=== PATIENT | female | born 2000 | race Caucasian/White ===

== ENCOUNTER 2020-07-10 13:39 | Emergency (ER) | payer SELFPAY ==
[2020-07-10 14:45] VITALS: BP 146/87; PULSE 104; RESP 20; TEMP 36.6; O2SAT 96; BMI 50.9
--- NOTE | 2020-07-10 14:45 | XR_ITS ---
PROCEDURE: XR FOOT LT MIN 3V CLINICAL INDICATION: FELT POP IN FOOT WHILE WALKING Pain COMPARISON: No exams were available for comparison FINDINGS: No fracture or dislocation. No lytic or blastic change. There is normal mineralization. The joint spaces are well-preserved. No significant degenerative/arthritic changes. No erosive changes evident. Other findings:None. IMPRESSION: No acute findings. Dictated by: Jose Miguel Carranza MD 07/10/2020 15:05 Jose Miguel Carranza MD in [place] 07/10/2020 15:05
--- NOTE | 2020-07-10 15:24 | HMH.EDUTC ---
[facility] [place] Disposition Clinical Impression: Left foot pain, Tendonitis of foot, Flank pain, acute Disposition: Home, Self-Care Condition on Discharge: Good Instructions: Tendinopathy, DI for Foot Pain Additional Instructions: Rest the extremity, apply ice for 15 minutes as tolerated three or four times per day, Wear the evaristo wrap for compression, Elevate the extremity as tolerated while you are resting. Take ibuprofen for pain. I sent in a prescription to your pharmacy. Follow up with Dr. Kern (measurement specialist). I put in a referral but you need to call her office and schedule an appointment. Follow up with your regular doctor. GO TO THE ER FOR ANY WORSENING SYMPTOMS Prescriptions: Ibuprofen [Ibuprofen 600mg Tablet] 600 mg PO Q6HP PRN #30 tab PRN Reason: Mild Pain Transmission Status: Received by [id number] Referrals: Joaquín Shen [Primary Care Provider] - Forms: Work/School Release Time of Disposition: 15:27 Medical Decision Making - Medical Records Medical records reviewed: No: I reviewed the patient's medical records. - Jose Armando Inquiry Pt receiving controlled substance: No Vital Signs: 07/10/20 14:45 07/10/20 15:30 Temperature 97.8 F 97.8 F Temperature Source Oral Pulse Rate 104 H Pulse Rate [Right Brachial] 104 H Respiratory Rate 20 20 Blood Pressure 146/87 H Blood Pressure [Right Arm] 146/87 H Blood Pressure Mean [Right Arm] 106 Blood Pressure Source [Right Arm] Automatic Cuff Blood Pressure Position [Right Arm] Sitting 02 Sat by Pulse Oximetry 96 Oxygen Delivery Method Room Air - Radiology Data #1 Image(s): Foot/Toes Image Reviewed: Yes I reviewed the patient's radiology image, Yes I have reviewed radiologist's interpretation Preliminary Findings: No Fracture Seen PROCEDURE: XR FOOT LT MIN 3V CLINICAL INDICATION: FELT POP IN FOOT WHILE WALKING Pain COMPARISON: No exams were available for comparison FINDINGS: No fracture or dislocation. No lytic or blastic change. There is normal mineralization. The joint spaces are well-preserved. No significant degenerative/arthritic changes. No erosive changes evident. Other findings:None. IMPRESSION: No acute findings. Dictated by: Jose Miguel Carranza MD 07/10/2020 15:05 Jose Miguel Carranza MD in [place] 07/10/2020 15:05 [facility] [place] HPI - General Stated complaint: ao @ 1118 L foot popped Time Seen by Provider: 07/10/20 15:24 Mode of Arrival: Ambulatory Source of Information: Patient Limitations: No Limitations Description of Symptoms (Recalled from Triage Doc. by RN): PATIENT C/O PAIN TO SIDE OF LEFT FOOT X 3 DAYS HEENT Symptoms (Recalled from RN notes): No Resp Symptoms (Recalled from RN notes): No Skin Symptoms (Recalled from RN notes): No MS Symptoms (Recalled from RN notes): Yes Functional Status (Recalled from RN notes): WNL - History of Present Illness Provider Complaint: She states that 3 days ago she was walking when she heard and felt something pop in her left foot. Since then she has had pain with walking and bearing weight on the foot. - Related Data Previous Rx's Medication Instructions Recorded Ibuprofen [Ibuprofen 600mg 600 mg PO Q6HP PRN #30 tab 07/10/20 Tablet] Allergies Allergy/AdvReac Type Severity Reaction Status Date / Time No Known Allergies Allergy Verified 04/15/19 20:56 - Worker's Comp Is this a Worker's Comp case?: No [facility] History - Hepatitis A Screen Drug use history?: No High risk sexual behaviors?: No History of sexually transmitted infection?: No Currently employed?: No Childcare worker?: No Do you have indoor plumbing?: Yes Do you have electricity?: Yes Attestation statement:: This patient has been screened for Hepatitis A risk factors. I have reviewed the patient's past medical history: Yes - Social History Alcohol Intake: never Occupational Status: other Housing: house ROS Obtained: Yes All systems reviewed & no additional complaints -
[2020-07-10 15:30] VITALS: BP 146/87; PULSE 104; RESP 20; TEMP 36.6; O2SAT 96
== END 2020-07-10 15:35 | disposition home or self-care (01) ==
PROVIDERS: Emergency Provider Nurse Practitioner Family; PCP Pediatrics
DX: M77.52 Other enthesopathy of left foot and ankle (principal); R10.9 Unspecified abdominal pain
CPT/HCPCS: 73630; 99201

== ENCOUNTER 2020-09-25 15:27 | Emergency (ER) | payer BC, SELFPAY ==
[2020-09-25 15:52] VITALS: BP 151/91; PULSE 109; RESP 14; TEMP 37.1; O2SAT 100; BMI 50.2
--- NOTE | 2020-09-25 15:55 | HMH.EDUTC ---
[facility] [place] Disposition Clinical Impression: Strep throat Disposition: Home, Self-Care Condition on Discharge: Good Instructions: DI for Strep Throat, Strep Throat, Strep Throat (Alternative Therapy) Additional Instructions: *Monitor Temp, Over the counter Motrin or Tylenol as directed/as needed Tylenol every 4 hours and Motrin every 6 hours (as long as your family doctor has told you that you can take it) for fever or pain. and straight to ER if unable to lower temp less than 101.0 after medication given *Warm salt water gargles may help to soothe the throat *Throat Lozenges *Warm fluids like tea with honey may help to soothe the throat *Sleep elevated *Humidifier/Vaporizer Strep throat *If you did not take Penicillin shot or was unable to, start taking antibiotic immediately and make sure that you take it for the FULL length of time although you should start to feel better in 24-48 hours *change toothbrush and toothpaste 24-48 hours after starting to take antibiotics so you do not reinfect yourself Monitor Temp. Tylenol and/or Ibuprofen as needed. ER if fever is no less than 101 despite alternating Tylenol and Ibuprofen * Encourage fluids, water, Gatorade, powerade, pedialyte if /toddler/or child *Cold fluids, popsicles and ice cream may feel good on his throat Follow up IMMEDIATELY for new or worsening symptoms or no Noticeable improvement over the next 48-72 hours. 911 for difficulty breathing or swallowing Prescriptions: Amoxicillin [Amoxicillin 500mg Cap] 500 mg PO BID 10 Days #20 cap Transmission Status: [id number] methylPREDNISolone [Medrol 4mg tab] 4 mg PO DIRECTED #21 tab Transmission Status: [id number] Referrals: Joaquín Shen [Primary Care Provider] - As needed Time of Disposition: 16:03 Medical Decision Making - Jose Armando Inquiry Pt receiving controlled substance: No Jose Armando was queried for this patient: No Vital Signs: 09/25/20 15:52 Temperature 98.7 F Temperature Source Oral Pulse Rate [Right] 109 H Respiratory Rate 14 Blood Pressure [Right Arm] 151/91 H Blood Pressure Mean [Right Arm] 111 Blood Pressure Source [Right Arm] Automatic Cuff Blood Pressure Position [Right Arm] Sitting 02 Sat by Pulse Oximetry 100 Oxygen Delivery Method Room Air - Lab Data Lab results reviewed: Yes: I reviewed the patient's lab results. [facility] [place] HPI - General Stated complaint: sore throat Time Seen by Provider: 09/25/20 15:55 Mode of Arrival: Ambulatory Source of Information: Patient Limitations: No Limitations Description of Symptoms (Recalled from Triage Doc. by RN): pt woke up with a sore throat and body aches. she says it feels like strep. HEENT Symptoms (Recalled from RN notes): Yes (sore throat) Resp Symptoms (Recalled from RN notes): No Skin Symptoms (Recalled from RN notes): No MS Symptoms (Recalled from RN notes): No Functional Status (Recalled from RN notes): na - History of Present Illness Provider Complaint: Patient states that she has had strep throat several times in the past States that she woke up having body aches, chills and sore throat and feels like she does when she gets strep throat so she came in to get checked - Related Data Previous Rx's Medication Instructions Recorded Ibuprofen [Ibuprofen 600mg 600 mg PO Q6HP PRN #30 tab 07/10/20 Tablet] Amoxicillin [Amoxicillin 500mg 500 mg PO BID 10 Days #20 cap 09/25/20 Cap] methylPREDNISolone [Medrol 4mg 4 mg PO DIRECTED #21 tab 09/25/20 tab] Allergies Allergy/AdvReac Type Severity Reaction Status Date / Time No Known Allergies Allergy Verified 04/15/19 20:56 - Worker's Comp Is this a Worker's Comp case?: No [facility] History - Hepatitis A Screen Drug use history?: No High risk sexual behaviors?: No History of sexually transmitted infection?: No Currently employed?: No Childcare worker?: No Do you have indoor plumbing?: Yes Do you have electricity?
[2020-09-25 16:10] VITALS: BP 142/89; PULSE 105; RESP 14; TEMP 37.2
[2020-09-25 20:10] LABS: UTC Strep Screen (Rapid) Positive (Negative)
== END 2020-09-25 16:11 | disposition home or self-care (01) ==
PROVIDERS: Emergency Provider Nurse Practitioner; PCP Pediatrics
DX: J02.0 Streptococcal pharyngitis (principal)
CPT/HCPCS: 87880; 99202; G0463

== ENCOUNTER → 2021-06-10 16:04 | Outpatient (CLI) | payer BC, SELFPAY ==
--- NOTE | 2021-06-10 16:16 | XR_ITS ---
PROCEDURE: XR CHEST 2V CLINICAL HISTORY: R/O TB COMPARISON: CT CT ABDOMEN PELVIS W CON from 04/15/2019 CR XR CHEST 2V from 04/15/2019 FINDINGS: The cardiomediastinal silhouette and pulmonary vascularity are within normal limits. No lobar consolidation or collapse is evident. No effusions or infiltrates. There is a nodular opacity overlying the right lower lobe at 10 by 6 mm not readily apparent on the previous exam. May be due to a developing calcified granuloma. Follow-up chest may confirm stability. This was not apparent on 04/15/2019 although the degree of inspiration was less on that exam. This may also be related to overlapping vessels. No acute bony abnormalities. IMPRESSION: 10 mm nodular opacity right lower lobe. This is not readily apparent on the lateral view. This may be related to overlapping vessels or a calcified granuloma. Suggest 3 month chest x-ray follow-up to confirm stability Dictated by: Jose Miguel Carranza MD 06/10/2021 16:47 Jose Miguel Carranza MD in [place] 06/10/2021 16:47
== END ==
PROVIDERS: PCP Pediatrics; Visit Provider Nurse Practitioner Family
DX: Z11.1 Encounter for screening for respiratory tuberculosis (principal)
CPT/HCPCS: 71046

== ENCOUNTER 2021-08-22 15:14 | Emergency (ER) | payer BC, SELFPAY ==
[2021-08-22 17:39] VITALS: BP 141/91; PULSE 115; RESP 18; TEMP 36.9; O2SAT 99; BMI 44.3
[2021-08-22 17:45] LABS: UTC Strep Screen (Rapid) Positive (Negative)
[2021-08-22 17:48] VITALS: BP 141/91; PULSE 115; RESP 18; TEMP 36.9
--- NOTE | 2021-08-22 18:29 | HMH.EDUTC ---
[facility] [place] Disposition Clinical Impression: Strep throat Disposition: Home, Self-Care Condition on Discharge: Good Instructions: Strep Throat, DI for Strep Throat Additional Instructions: Drink plenty of fluids. Take tylenol or ibuprofen for pain or fever. Take the medications as directed. Follow up with your regular doctor. GO TO THE ER FOR ANY WORSENING SYMPTOMS Throw your tooth brush away and get a new one. Prescriptions: Azithromycin [Z-Khang 250mg Tab*] 250 mg PO UD DOSE PK #6 tab Transmission Status: Received by [facility]/pharmacy #[id number] Referrals: Joaquín Shen [Primary Care Provider] - Time of Disposition: 18:46 Medical Decision Making - Medical Records Medical records reviewed: No: I reviewed the patient's medical records. - Jose Armando Inquiry Pt receiving controlled substance: No Vital Signs: 08/22/21 17:39 08/22/21 17:48 Temperature 98.5 F 98.5 F Temperature Source Oral Pulse Rate 115 H Pulse Rate [Left] 115 H Respiratory Rate 18 18 Blood Pressure 141/91 H Blood Pressure [Right Arm] 141/91 H Blood Pressure Mean [Right Arm] 107 02 Sat by Pulse Oximetry 99 - Lab Data Lab results reviewed: Yes: I reviewed the patient's lab results. Lab Results 08/22/21 17:44: Strep Scn Rapid Clinic Positive A Orders (Tests/Meds): ED MEDICATIONS Discontinued Medications Generic Name Dose Route Start Last Admin Trade Name Mahogany PRN Reason Stop Dose Admin Dexamethasone Sodium Phosphate 8 mg 08/22/21 18:43 08/22/21 18:52 Dexamethasone 4mg/Ml 1ml Vial IM 08/22/21 18:44 8 mg ONCE ONE Administration Penicillin G Benzathine 1,200,000 unit 08/22/21 18:43 08/22/21 18:52 Penicillin G Benzathine 1,200,000 Units/2ml Syringe IM 08/22/21 18:44 1,200,000 unit ONCE ONE Administration [facility] [place] HPI - General Stated complaint: trouble swallowing following a stomach bug Time Seen by Provider: 08/22/21 18:36 Mode of Arrival: Ambulatory Source of Information: Patient Limitations: No Limitations Description of Symptoms (Recalled from Triage Doc. by RN): pt c/o n/v and a sore throat. HEENT Symptoms (Recalled from RN notes): Yes (sore throat) Resp Symptoms (Recalled from RN notes): No Skin Symptoms (Recalled from RN notes): No MS Symptoms (Recalled from RN notes): No Functional Status (Recalled from RN notes): wnl - History of Present Illness Provider Complaint: She states that she has had a sore throat for over 1 week. She went to the er at [place] in [facility] and was diagnosed with a stomach virus b/c of vomiting. But, her throat has continued to be sore and she is having trouble swallow anything by this point. - Related Data Previous Rx's Medication Instructions Recorded Ibuprofen [Ibuprofen 600mg 600 mg PO Q6HP PRN #30 tab 07/10/20 Tablet] Azithromycin [Z-Khang 250mg Tab*] 250 mg PO UD DOSE PK #6 tab 08/22/21 Allergies Allergy/AdvReac Type Severity Reaction Status Date / Time No Known Allergies Allergy Verified 07/26/21 14:30 - Worker's Comp Is this a Worker's Comp case?: No [facility] History - Hepatitis A Screen Drug use history?: No High risk sexual behaviors?: No History of sexually transmitted infection?: No Currently employed?: No Childcare worker?: No Do you have indoor plumbing?: Yes Do you have electricity?: Yes Attestation statement:: This patient has been screened for Hepatitis A risk factors. I have reviewed the patient's past medical history: Yes - Social History Smoking Status: Never smoker Alcohol Intake: never Occupational Status: employed Housing: house ROS Obtained: Yes All systems reviewed & no additional complaints - Constitutional Constitutional: Reports as per HPI - Eyes Eyes: Denies eye discharge - ENT Ears, Nose, Mouth, and Throat: Reports as per HPI - Cardiovascular Cardiovascular: Denies chest pain - Respiratory Respiratory: Denies chest congestion, Denies cough - Gastrointestinal Gastrointestingal:
== END 2021-08-22 19:00 | disposition home or self-care (01) ==
PROVIDERS: Emergency Provider Nurse Practitioner Family; PCP Pediatrics
DX: J02.0 Streptococcal pharyngitis (principal)
CPT/HCPCS: 87880; 96372; 99203; G0463; J0561